=== PATIENT | male | born 2000 | race Two or more races ===

== ENCOUNTER 2019-01-21 10:18 | Emergency (ER) | payer SELFPAY ==
[2019-01-21 11:13] VITALS: BP 116/54; PULSE 50; TEMP 98.4; BMI 25.0
--- NOTE | 2019-01-21 11:35 | PDOC ---
*Physical Exam - Vital Signs Last Vital Signs Temp Pulse Resp BP Pulse Ox 98.4 F 50 L 18 116/54 L 98 01/21/19 11:09 01/21/19 11:09 01/21/19 11:09 01/21/19 11:09 01/21/19 11:09 Medical Decision Making - Medical Decision Making 01/21/19 11:35 Pt seen by Midlevel Provider under my direct supervision Ancillary studies reviewed I agree with plan as outlined by Midlevel Provider 01/21/19 13:03 *DC/Admit/Observation/Transfer Diagnosis at time of Disposition: Nausea & vomiting - Discharge Dispostion Disposition: HOME Condition at time of disposition: Improved - Prescriptions Prescriptions: Ondansetron [Zofran Odt -] 4 mg SL TID PRN #12 od.tablet PRN Reason: Nausea - Referrals - Patient Instructions Printed Discharge Instructions: DI for Nausea -- Adult Additional Instructions: Please take Zofran as needed for nausea. Eat a bland diet for the next 48 hours and then may advance as tolerated. If symptoms do not improve in worsen please return to the nearest ED. Otherwise up with your doctor. - Post Discharge Activity Forms/Work/School Notes: Back to Work
[2019-01-21] MEDS ORDERED: ONDANSETRON *ODT* 4 MG TABLET SL ONE (11:54)
--- NOTE | 2019-01-21 11:54 | PDOC ---
History of Present Illness - General Chief Complaint: Pain Stated Complaint: Diarrhea Time Seen by Provider: 01/21/19 11:23 History Source: Patient Exam Limitations: No Limitations - History of Present Illness Travel History: No Initial Comments: 01/21/19 12:01 18-year-old male with no past medical history presents to ED with sudden onset of nausea followed by vomiting and 2 episodes of diarrhea. Patient states symptoms began a few hours after having [employer] which was a chili cheese dog and a milkshake. Patient denies recent illness, fever, chills, chest pain or shortness of breath. Patient has no urinary complaints or previous GI history. Timing/Duration: reports: changing over time Quality: reports: mild, cramping Abdominal Pain Onset Location: reports: epigastric Pain Radiation: reports: no radiation Activities at Onset: reports: none Aggravating Factors: improves with: None Alleviating Factors: improves with: None Past History - Travel Traveled outside of the country in the last 30 days: No Close contact w/someone who was outside of country & ill: No - Past Medical History Allergies/Adverse Reactions: Allergies Allergy/AdvReac Type Severity Reaction Status Date / Time No Known Allergies Allergy Verified 01/21/19 11:12 Home Medications: Ambulatory Orders NK [No Known Home Medication] 01/09/16 - Suicide/Smoking/Psychosocial Hx Smoking History: Never smoked Have you smoked in the past 12 months: No Information on smoking cessation initiated: No Hx Alcohol Use: No Drug/Substance Use Hx: No Substance Use Type: None Patient Lives Alone: No Lives with/in: parents Review of Systems - Review of Systems Able to Perform ROS?: Yes Constitutional: No: Symptoms Reported HEENTM: No: Symptoms Reported Respiratory: No: Symptoms reported Cardiac (ROS): No: Symptoms Reported ABD/GI: Yes: Constipated, Diarrhea, Nausea, Vomiting, Abdominal cramping : No: Symptoms Reported Musculoskeletal: No: Symptoms Reported Integumentary: No: Symptoms Reported Neurological: No: Symptoms reported *Physical Exam - Vital Signs Last Vital Signs Temp Pulse Resp BP Pulse Ox 98.4 F 50 L 18 116/54 L 98 01/21/19 11:09 01/21/19 11:09 01/21/19 11:09 01/21/19 11:09 01/21/19 11:09 - Physical Exam General Appearance: Yes: Nourished, Appropriately Dressed. No: Apparent Distress HEENT: positive: Pharynx Normal Respiratory/Chest: positive: Lungs Clear, Normal Breath Sounds. negative: Respiratory Distress, Accessory Muscle Use Cardiovascular: positive: Regular Rhythm. negative: Murmur Gastrointestinal/Abdominal: positive: Normal Bowel Sounds, Soft, Tenderness ( epigastric left lower quadrant). negative: Distended, Guarding, Rebound Musculoskeletal: negative: CVA Tenderness Extremity: positive: Normal Inspection Integumentary: positive: Normal Color, Warm, Moist Neurologic: positive: Motor Strength 5/5 (ambulatory) Medical Decision Making - Medical Decision Making 01/21/19 12:00 chief complaint: Abdominal pain associate nausea vomiting diarrhea a few hours after having food at [employer]. Exam: Vital signs stable epigastric and left lower quadrant tenderness Plan: Zofran sublingual. Patient does not want lab work or an IV placed 01/21/19 12:58 Patient states feels moderate improvement of nausea but feels fatigued. Patient tolerated 1 abad cracker packet and 1 apple juice. Patient will be discharged home with Zofran. *DC/Admit/Observation/Transfer Diagnosis at time of Disposition: Nausea & vomiting - Discharge Dispostion Disposition: HOME Condition at time of disposition: Improved - Referrals - Patient Instructions Printed Discharge Instructions: DI for Nausea -- Adult Additional Instructions: Please take Zofran as needed for nausea. Eat a bland diet for the next 48 hours and then may advance as tolerated. If symptoms do not improve in worsen please return to the nearest ED. Otherwise up with your doctor. - Post Discharge Activity Forms/Work/School Notes: Back to Work
[2019-01-21] MEDS ORDERED: ONDANSETRON *ODT* 4 MG TABLET ONE (11:56)
== END 2019-01-21 13:09 | disposition home or self-care (01) ==
LOC: JER 10:18
DX: R11.2 Nausea with vomiting, unspecified (principal)
CPT/HCPCS: 99281-25; Q0162

== ENCOUNTER 2019-04-15 13:47 | Emergency (ER) | payer OTHER ==
[2019-04-15 13:56] VITALS: BP 152/53; PULSE 64; TEMP 98; BMI 28.7
[2019-04-15] MEDS ORDERED: ACETAMINOPHEN 325 MG TABLET (FP) PO ONE (14:01)
--- NOTE | 2019-04-15 14:01 | PDOC ---
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 Patient is able to ambulate patient states his tetanus is up to date, had a get a full work recently. GENERAL/CONSTITUTIONAL: No fever, weakness. dizziness HEAD, EYES, EARS, NOSE AND THROAT: No change in vision. No ear pain or discharge. No sore throat. CARDIOVASCULAR: No chest pain RESPIRATORY: No shortness of breath or cough GASTROINTESTINAL: No pain, nausea, vomiting, diarrhea or constipation GENITOURINARY: No dysuria MUSCULOSKELETAL: No neck or back pain,+right leg injury SKIN: No rash NEUROLOGIC: No headache, vertigo, loss of consciousness, or loss of sensation. GENERAL: The patient is awake, alert, and fully oriented, in no acute distress. HEAD: Normal with no signs of trauma. EYES: Pupils equal, round and reactive to light, sclera anicteric, conjunctiva clear. ENT: pharynx: no erythema, no exudate, uvula midline NECK: supple CHEST: clear, nontender, rr ABD: soft, nontender BACK: no tenderness or signs of injury EXTREMITIES: right leg: small abrasion right lateral calf, with mild tenderness , no deformity. no ecchymosis or signs of infection. full range of motion. rest of extremities, normal range of motion, no edema. NEUROLOGICAL: Normal speech, able to ambulate, non focal SKIN: Warm, Dry Past History - Past Medical History Allergies/Adverse Reactions: Allergies Allergy/AdvReac Type Severity Reaction Status Date / Time No Known Allergies Allergy Verified 01/21/19 11:12 Home Medications: Ambulatory Orders Ondansetron [Zofran Odt -] 4 mg SL TID PRN #12 od.tablet 01/21/19 COPD: No - Suicide/Smoking/Psychosocial Hx Smoking History: Never smoked Have you smoked in the past 12 months: No Hx Alcohol Use: No Drug/Substance Use Hx: No Substance Use Type: None *Physical Exam - Vital Signs Last Vital Signs Temp Pulse Resp BP Pulse Ox 98.0 F 64 18 152/53 L 97 04/15/19 13:53 04/15/19 13:53 04/15/19 13:53 04/15/19 13:53 04/15/19 13:53 Medical Decision Making - Medical Decision Making 04/15/19 15:04 18 yo male, with right leg injury. tdap utd. will xray, wound care. xray negative Discussed issues, findings, results, applicable medications and treatments and follow-up. All these were understood and all questions were answered 04/15/19 15:06 *DC/Admit/Observation/Transfer Diagnosis at time of Disposition: Leg injury Qualifiers: Encounter type: initial encounter Laterality: right Qualified Code(s): S89.91XA - Unspecified injury of right lower leg, initial encounter - Discharge Dispostion Disposition: HOME Condition at time of disposition: Stable Decision to Admit order: No - Referrals - Patient Instructions Printed Discharge Instructions: DI for Abrasion Additional Instructions: you can apply ice to your leg for 20 minutes every 2 hours for 2 days you can take tylenol 650 mg every 4 hours or motrin 600 mg every 6 hours as needed for pain Clean with soap and water 2-3 times daily, apply bacitracin Have her reevaluated if redness, pus, fever or getting worse Followup with your doctor - Post Discharge Activity Forms/Work/School Notes: Back to Work
[2019-04-15] MEDS ORDERED: ACETAMINOPHEN 325 MG TABLET (FP) ONE (14:10)
== END 2019-04-15 14:34 | disposition home or self-care (01) ==
LOC: JERFT 13:47
DX: S89.91XA Unspecified injury of right lower leg, initial encounter (principal); X58.XXXA Exposure to other specified factors, initial encounter; Y93.89 Activity, other specified; Y92.89 Other specified places as the place of occurrence of the external cause; Y99.0 Civilian activity done for income or pay
CPT/HCPCS: 73590-TC-RT-FY; 99282-25